=== PATIENT | male | born 1970 | race African-American/Black ===

== ENCOUNTER 2017-04-25 09:37 | Emergency (ER) | payer SELFPAY ==
[2017-04-25] MEDS ORDERED: Ketorolac Tromethamine 30 MG/ML VIAL ONE (12:23)
== END 2017-04-25 12:27 | disposition home or self-care (01) ==
LOC: ERS 09:37
DX: G89.29 Other chronic pain (principal); M25.562 Pain in left knee; M25.561 Pain in right knee; M54.9 Dorsalgia, unspecified; E78.5 Hyperlipidemia, unspecified; I10 Essential (primary) hypertension; E66.9 Obesity, unspecified; F17.210 Nicotine dependence, cigarettes, uncomplicated
CPT/HCPCS: 96372; 99406; J1885

== ENCOUNTER 2017-08-23 20:25 | Emergency (ER) | payer SELFPAY ==
[2017-08-23 21:26] LABS: #Eosinphils 0.1 thou/uL (0.0-0.7); #Lymphocytes 2.2 thou/uL (1.20-3.40); #Monocytes 0.4 thou/uL (0.11-0.59); #Neutrophils 4.4 thou/uL (1.40-6.50); %Basophils 0.4 % (0.0-1.0); %Eosinophils 1.1 % (0.0-10.0); %Lymphocytes 30.3 % (21.0-51.0); %Monocytes 6.2 % (0.0-10.0); %Neutrophils 62.1 % (42.0-75.0); Hemoglobin 15.7 g/dL (14.0-18.0); Mean Corpuscular Hemoglobin 31.2 pg (27.0-31.0); Mean Corpuscular Volume 94.5 fl (80.0-94.0); Mean Platelet Volume 6.9 fL (7.4-10.4); Platelet Count 290 thou/uL (130-400); RBC Distribution Width 11.4 % (11.5-14.5); Red Blood Cell (RBC) Count 5.05 mill/uL (4.70-6.10); White Blood Cell (WBC) Count 7.1 thou/uL (4.8-10.8)
--- NOTE | 2017-08-23 21:42 | RAD ---
FRONTAL VIEW CHEST: 08/23/17 COMPARISON: 05/04/16. INDICATION: Syncope. Chest pain. FINDINGS: There is no evidence of consolidation, effusion or discrete pneumothorax. Elevation of the right luz maria diaphragm. The cardiomediastinal silhouette is prominent, accentuated with portable technique, and gr ossly stable. IMPRESSION: Stable prominence of cardiomediastinal silhouette with mild vascular congestion. Correlate clinically . POS: [facility]
[2017-08-23 21:48] LABS: ALT (SGPT) 22 U/L (8-55); AST (SGOT) 20 U/L (5-34); Albumin 3.9 g/dL (3.5-5.0); Alkaline Phosphatase 117 U/L (40-150); Anion Gap 13 mmol/L (10-20); BUN (Urea Nitrogen) 10 mg/dL (8.9-20.6); Bilirubin, Total 0.6 mg/dL (0.2-1.2); Calc. Creatinine Clearance 0 mL/min (70-130); Calcium 9.7 mg/dL (7.8-10.44); Carbon Dioxide 26 mmol/L (22-29); Chloride 101 mmol/L (98-107); Estimated GFR-MDRD 80; Globulin 3.8 g/dL (2.4-3.5); Glucose 91 mg/dL (70-105); Potassium 3.4 mmol/L (3.5-5.1); Protein, Total 7.7 g/dL (6.0-8.3); Sodium 137 mmol/L (136-145)
[2017-08-23 21:52] LABS: CKMB 1.9 ng/mL (0-6.6); Troponin I Less than 0.010 ng/mL (< 0.028)
[2017-08-23 22:35] LABS: Bilirubin Negative (Negative); Blood, Urine Negative (Negative); Clarity CLEAR (Clear); Glucose, Urine (Dipstick) Negative (Negative); Leukocyte Negative (Negative); Nitrite Negative (Negative); Protein, Urine (Dipstick) Negative (Neg-Trace); Specific Gravity, Urine 1.015 (1.002-1.036); pH, Urine 6.5 (5.0-9.0)
[2017-08-23 22:44] LABS: Amphetamine Detected (NotDetected); Medtox Reader # READER 1; Methamphetamine Detected (NotDetected); Opiate Screen Detected (NotDetected); THC/Cannabinoid Screen Detected (NotDetected)
[2017-08-23 22:45] LABS: Barbiturates Screen Not Detected (NotDetected); Benzodiazepine Screen Not Detected (NotDetected); Cocaine Metabolite Screen Not Detected (NotDetected); Medtox Control Line Valid? VALID (VALID); Methadone Not Detected (NotDetected); Oxycodone Screen Not Detected (NotDetected); Phencyclidine (PCP) Not Detected (NotDetected); Tricyclic Screen Not Detected (NotDetected)
== END 2017-08-23 23:45 | disposition home or self-care (01) ==
LOC: ERS 20:25
DX: E86.0 Dehydration (principal); E78.5 Hyperlipidemia, unspecified; I10 Essential (primary) hypertension; E66.9 Obesity, unspecified; F17.210 Nicotine dependence, cigarettes, uncomplicated
CPT/HCPCS: 36415; 71045; 80053; 80306; 81003; 82553; 84484; 85025; 85379; 93005; 96360; 96361

== ENCOUNTER 2019-11-13 08:11 | Outpatient (CLI) | payer MEDICARE, MEDICAID ==
--- NOTE | 2019-11-13 11:11 | MRI ---
MRI LUMBAR SPINE WITHOUT CONTRAST: HISTORY: Difficulty walking. Numbness in both feet. COMPARISON: 01/22/2018. FINDINGS: The vertebral heights and marrow signal are maintained. There is disk desiccation at L3-4 level. Th ere is continued mild disk bulging with stable mild severe disk extrusion. No significant central ca nal stenosis is seen. There is mild bilateral neural foraminal stenosis at L3-4 and L4-5 levels. Fa cet hypertrophic changes are again noted at L3-4, L4-5, and L5-S1 levels. The conus medullaris ends at L1 level. The psoas muscles are bilaterally symmetric. IMPRESSION: Stable exam. POS: [facility]
== END 2019-11-13 08:12 | disposition home or self-care (01) ==
LOC: TBSIIMAG 08:11
PROVIDERS: ATTEND Family Medicine
DX: R26.2 Difficulty in walking, not elsewhere classified (principal)
CPT/HCPCS: 72148

== ENCOUNTER 2020-07-26 19:30 | Outpatient (CLI) | payer MEDICARE, MEDICAID | END 2020-07-26 19:31 | disposition home or self-care (01) | LOC: SLEEPLAB 19:30 | PROVIDERS: ATTEND Student in an Organized Health Care Education/Training Program | DX: G47.33 Obstructive sleep apnea (adult) (pediatric) (principal); R53.82 Chronic fatigue, unspecified; I10 Essential (primary) hypertension; G47.10 Hypersomnia, unspecified; G47.00 Insomnia, unspecified; R06.83 Snoring; E66.9 Obesity, unspecified; Z68.43 Body mass index [BMI] 50.0-59.9, adult | CPT/HCPCS: 95811 ==

== ENCOUNTER 2021-04-30 10:20 | Inpatient (IN) | payer MEDICARE, MEDICAID ==
[2021-04-30 10:54] LABS: Hemoglobin 13.9 g/dL (14.0-18.0); Mean Corpuscular HGB CONC 31.8 g/dL (32.0-36.0); Mean Corpuscular Hemoglobin 29.7 pg (27.0-31.0); Mean Corpuscular Volume 93.4 fL (78.0-98.0); Mean Platelet Volume 7.6 fL (7.4-10.4); Platelet Count 231 thou/uL (130-400); RBC Distribution Width 12.1 % (11.5-14.5); Red Blood Cell (RBC) Count 4.67 mill/uL (4.70-6.10); White Blood Cell (WBC) Count 18.3 thou/uL (4.8-10.8)
[2021-04-30 10:57] LABS: Bilirubin Negative (Negative); Blood, Urine Negative (Negative); Clarity Clear (Clear); Glucose, Urine (Dipstick) Normal (Negative); Ketone, Urine Negative (Negative); Leukocyte Negative Leu/uL (Negative); Nitrite Negative (Negative); Protein, Urine (Dipstick) Negative (Neg-Trace); Specific Gravity, Urine 1.018 (1.002-1.036); Urobilinogen 6 mg/dL (Less than 2)
[2021-04-30] MEDS ORDERED: cefTRIAXone\\ROCEPHIN 2 GM VIAL ONE (10:59)
[2021-04-30 11:15] LABS: Band 12 % (5-11); Lymphocytes 12 % (21-51); MDiff Complete? YES; Metamyelocyte 1 % (0-0); Monocytes 1 % (0-10); Neutrophil 74 % (42-75); RBC Morphology Normal
[2021-04-30 11:22] LABS: ALT (SGPT) 15 U/L (8-55); AST (SGOT) 14 U/L (5-34); Albumin 3.6 g/dL (3.5-5.0); Alkaline Phosphatase 120 U/L (40-110); Anion Gap 9 mmol/L (10-20); BUN (Urea Nitrogen) 10 mg/dL (8.4-25.7); Bilirubin, Total 0.8 mg/dL (0.2-1.2); Calc. Creatinine Clearance 0 mL/min (70-130); Calcium 9.2 mg/dL (7.8-10.44); Carbon Dioxide 30 mmol/L (22-29); Chloride 96 mmol/L (98-107); Glucose 104 mg/dL (70-105); Protein, Total 7.6 g/dL (6.0-8.3); Prothrombin Time 13.4 sec (12.0-14.7); Sodium 131 mmol/L (136-145)
[2021-04-30 11:32] LABS: SARS-CoV-2 NAA Rapid Test Not Detected (NotDetected)
[2021-04-30] MEDS ORDERED: Azithromycin 500 MG VIAL ONE (11:36)
[2021-04-30] MEDS ORDERED: Carvedilol 6.25 MG TAB PO SCH (14:15)
[2021-04-30] MEDS ORDERED: hydrALAZINE 25 MG TAB PO SCH ×2 (14:15→15:00)
[2021-04-30] MEDS ORDERED: hydrALAZINE 20 MG/ML VIAL SLOW IVP PRN (14:23)
[2021-04-30] MEDS ORDERED: Albuterol Sulfate 1.25 MG/3 ML NEB INH PRN (14:44)
[2021-04-30] MEDS ORDERED: Non-Formulary Item 1 EACH (Hydralazine Hcl [Hydralazine Hcl] 50 MG Tablet) PO SCH (15:00)
[2021-04-30] MEDS: Acetaminophen 325 MG TAB PO PRN (15:21)
[2021-04-30] MEDS ORDERED: Furosemide 40 MG/4 ML VIAL SLOW IVP SCH (16:00)
[2021-04-30 16:52] VITALS: BMI 59.1
[2021-04-30] MEDS ORDERED: Ketorolac Tromethamine 30 MG/ML VIAL IVP SCH (18:00)
[2021-04-30] MEDS ORDERED: Nicotine 14 MG PATCH TOP SCH (20:30)
[2021-04-30] MEDS: Cyclobenzaprine 10 MG TAB PO SCH (20:41)
[2021-04-30] MEDS: Pregabalin 75 MG CAP PO SCH (20:42)
[2021-04-30] MEDS: Carvedilol 6.25 MG TAB PO SCH (20:43)
[2021-04-30] MEDS: Enoxaparin Sodium 100 MG/ML SYRINGE SC SCH (20:48)
[2021-04-30] MEDS: hydrALAZINE 25 MG TAB PO SCH (21:07)
[2021-05-01 06:29] LABS: Hemoglobin 13.5 g/dL (14.0-18.0); Mean Corpuscular HGB CONC 31.9 g/dL (32.0-36.0); Mean Corpuscular Hemoglobin 30.3 pg (27.0-31.0); Mean Corpuscular Volume 95.1 fL (78.0-98.0); Mean Platelet Volume 8.1 fL (7.4-10.4); Platelet Count 176 thou/uL (130-400); RBC Distribution Width 12.3 % (11.5-14.5); Red Blood Cell (RBC) Count 4.44 mill/uL (4.70-6.10); White Blood Cell (WBC) Count 8.1 thou/uL (4.8-10.8)
[2021-05-01] MEDS: Acetaminophen 325 MG TAB PO PRN ×2 (06:39→16:27)
[2021-05-01 06:48] LABS: Band 10 % (5-11); Lymphocytes 4 % (21-51); MDiff Complete? YES; Monocytes 4 % (0-10); Neutrophil 82 % (42-75)
[2021-05-01 07:11] LABS: ALT (SGPT) 31 U/L (8-55); AST (SGOT) 40 U/L (5-34); Albumin 3.1 g/dL (3.5-5.0); Alkaline Phosphatase 109 U/L (40-110); Anion Gap 12 mmol/L (10-20); BUN (Urea Nitrogen) 9 mg/dL (8.4-25.7); Bilirubin, Total 0.6 mg/dL (0.2-1.2); Calc. Creatinine Clearance 267 mL/min (70-130); Carbon Dioxide 25 mmol/L (22-29); Chloride 102 mmol/L (98-107); Globulin 3.9 g/dL (2.4-3.5); Glucose 88 mg/dL (70-105); Potassium 4.2 mmol/L (3.5-5.1); Sodium 135 mmol/L (136-145)
[2021-05-01] MEDS: Tamsulosin HCl 0.4 MG CAP PO SCH (08:36)
[2021-05-01] MEDS: Meloxicam 15 MG TAB PO SCH (08:36)
[2021-05-01] MEDS: Carvedilol 6.25 MG TAB PO SCH ×2 (08:36→20:36)
[2021-05-01] MEDS: Atorvastatin Calcium 40 MG TAB PO SCH (08:36)
[2021-05-01] MEDS: FLUoxetine HCl 20 MG CAP PO SCH (08:37)
[2021-05-01] MEDS: Pregabalin 75 MG CAP PO SCH ×2 (08:37→20:38)
[2021-05-01] MEDS: hydrALAZINE 25 MG TAB PO SCH ×3 (08:37→22:01)
[2021-05-01] MEDS: Furosemide 40 MG/4 ML VIAL SLOW IVP SCH (08:38)
[2021-05-01] MEDS: Enoxaparin Sodium 100 MG/ML SYRINGE SC SCH ×2 (08:38→20:40)
[2021-05-01] MEDS: Fluticasone Propionate Nasal Spray 16 gm Bottle NASAL SCH (08:38)
[2021-05-01] MEDS ORDERED: Azithromycin 200 MG/5 ML Oral Suspension PO SCH (09:00)
[2021-05-01] MEDS ORDERED: Enoxaparin Sodium 40 MG/0.4 ML SYRINGE SC SCH (09:00)
[2021-05-01] MEDS ORDERED: Furosemide 40 MG TAB PO SCH (09:00)
[2021-05-01] MEDS ORDERED: cefTRIAXone\\ROCEPHIN 2 GM in Sodium Chloride 0.9% 100 ML IVPB SCH (11:00)
[2021-05-01] MEDS: Cephalexin 250 MG CAP PO SCH ×3 (14:33→20:46)
[2021-05-01] MEDS: Ibuprofen 200 MG TAB PO PRN (17:12)
[2021-05-01] MEDS: Cyclobenzaprine 10 MG TAB PO SCH (20:35)
[2021-05-02] MEDS: Ibuprofen 200 MG TAB PO PRN (05:53)
[2021-05-02 07:09] LABS: #Eosinphils 0.2 thou/uL (0.0-0.7); #Lymphocytes 1.2 thou/uL (1.20-3.40); #Monocytes 0.5 thou/uL (0.11-0.59); #Neutrophils 2.5 thou/uL (1.40-6.50); %Basophils 0.4 % (0.0-1.0); %Eosinophils 3.7 % (0.0-10.0); %Lymphocytes 28.2 % (21.0-51.0); %Monocytes 10.5 % (0.0-10.0); %Neutrophils 57.3 % (42.0-75.0); Mean Corpuscular HGB CONC 31.7 g/dL (32.0-36.0); Mean Corpuscular Hemoglobin 30.4 pg (27.0-31.0); Mean Corpuscular Volume 95.8 fL (78.0-98.0); Mean Platelet Volume 7.2 fL (7.4-10.4); Platelet Count 207 thou/uL (130-400); RBC Distribution Width 12.1 % (11.5-14.5); White Blood Cell (WBC) Count 4.3 thou/uL (4.8-10.8)
[2021-05-02] MEDS: Furosemide 40 MG/4 ML VIAL SLOW IVP SCH (09:26)
[2021-05-02] MEDS: Tamsulosin HCl 0.4 MG CAP PO SCH (09:26)
[2021-05-02] MEDS: hydrALAZINE 25 MG TAB PO SCH ×2 (09:26→15:34)
[2021-05-02] MEDS: FLUoxetine HCl 20 MG CAP PO SCH (09:26)
[2021-05-02] MEDS: Meloxicam 15 MG TAB PO SCH (09:26)
[2021-05-02] MEDS: Cephalexin 250 MG CAP PO SCH ×2 (09:26→14:15)
[2021-05-02] MEDS: Carvedilol 6.25 MG TAB PO SCH (09:26)
[2021-05-02] MEDS: Enoxaparin Sodium 100 MG/ML SYRINGE SC SCH (09:27)
[2021-05-02] MEDS: Atorvastatin Calcium 40 MG TAB PO SCH (09:27)
[2021-05-02] MEDS: Fluticasone Propionate Nasal Spray 16 gm Bottle NASAL SCH (09:27)
[2021-05-02] MEDS: Pregabalin 75 MG CAP PO SCH (09:27)
[2021-05-02 09:34] VITALS: BP 139/87
[2021-05-02 09:42] VITALS: TEMP 97.9
[2021-05-03] MEDS ORDERED: Prevnar 13-Val Conj/PF 0.5 ML SYRINGE IM ONE (17:45)
== END 2021-05-02 15:59 | disposition home or self-care (01) | DRG 603 ==
LOC: ERS 10:20 → T4-A 12:46
PROVIDERS: ADMIT Student in an Organized Health Care Education/Training Program; ATTEND Student in an Organized Health Care Education/Training Program
DX: L03.314 Cellulitis of groin (principal); E87.1 Hypo-osmolality and hyponatremia; R65.10 Systemic inflammatory response syndrome (SIRS) of non-infectious origin without acute organ dysfunction; Z68.43 Body mass index [BMI] 50.0-59.9, adult; J06.9 Acute upper respiratory infection, unspecified; Z20.822 Contact with and (suspected) exposure to COVID-19; I10 Essential (primary) hypertension; G47.33 Obstructive sleep apnea (adult) (pediatric); M54.50 Low back pain, unspecified; G89.29 Other chronic pain; E66.01 Morbid (severe) obesity due to excess calories; N40.0 Benign prostatic hyperplasia without lower urinary tract symptoms; F17.210 Nicotine dependence, cigarettes, uncomplicated; F32.A Depression, unspecified; J44.9 Chronic obstructive pulmonary disease, unspecified; M10.9 Gout, unspecified; J32.9 Chronic sinusitis, unspecified; Z79.899 Other long term (current) drug therapy; Z79.51 Long term (current) use of inhaled steroids
CPT/HCPCS: 0240U; 36415; 36416; 71045; 80053; 81003; 83605; 83880; 84145; 84484; 85025; 85520; 85610; 85730; 87040; 87086; 87633; 93005; 94640; 96365; 96367; J0456; J0696; J1650; J1885; J1940; J3490; J7620

== ENCOUNTER 2021-06-25 14:04 | Outpatient (CLI) | payer MEDICARE, MEDICAID | END 2021-06-25 14:05 | disposition home or self-care (01) | LOC: LABBT 14:04 | PROVIDERS: ATTEND Urology | DX: Z01.818 Encounter for other preprocedural examination (principal); N40.1 Benign prostatic hyperplasia with lower urinary tract symptoms; R35.0 Frequency of micturition; M51.36 Other intervertebral disc degeneration, lumbar region; F17.200 Nicotine dependence, unspecified, uncomplicated; M17.0 Bilateral primary osteoarthritis of knee; M53.2X2 Spinal instabilities, cervical region; R35.1 Nocturia; Z12.5 Encounter for screening for malignant neoplasm of prostate; Z80.42 Family history of malignant neoplasm of prostate; E66.01 Morbid (severe) obesity due to excess calories; N39.41 Urge incontinence; Z86.19 Personal history of other infectious and parasitic diseases; R60.0 Localized edema; Z20.822 Contact with and (suspected) exposure to COVID-19 | CPT/HCPCS: 71046; 80048; 81001; 85027; 85610; 85730; 86850; 86900; 86901; 87086; U0003; U0005 ==

== ENCOUNTER 2021-06-30 09:18 | Observation (INO) | payer MEDICARE, MEDICAID ==
[2021-06-25 11:14] VITALS: BMI 61.0
[2021-06-25 15:29] LABS: Hemoglobin 12.6 g/dL (13.5-17.5); Mean Corpuscular HGB CONC 31.3 g/dL (32.0-36.0); Mean Corpuscular Hemoglobin 29.4 pg (27.0-33.0); Mean Corpuscular Volume 93.7 fl (81.2-95.1); Mean Platelet Volume 9.9 fl (7.4-10.4); Platelet Count 280 10x3/uL (150-450); RBC Distribution Width 13.3 % (11.5-14.5); Red Blood Cell (RBC) Count 4.29 10x6/uL (4.32-5.72); White Blood Cell (WBC) Count 6.9 10x3/uL (3.5-10.5)
[2021-06-25 15:32] LABS: Bilirubin Neg (Negative); Blood, Urine Negative (Negative); Clarity Clear (Clear); Glucose, Urine (Dipstick) Normal (Negative); Ketone, Urine Negative (Negative); Leukocyte Negative (Negative); Nitrite Negative (Negative); Protein, Urine (Dipstick) Negative (Neg-Trace); Urobilinogen Normal mg/dL (Less than 2); pH, Urine 6.5 (5.0-9.0)
[2021-06-25 15:36] LABS: Urine Culture Reflex No No
[2021-06-25 15:50] LABS: Anion Gap 13 mmol/L (10-20); BUN (Urea Nitrogen) 13 mg/dL (8.4-25.7); Calc. Creatinine Clearance 0 mL/min (70-130); Calcium 8.9 mg/dL (7.8-10.44); Carbon Dioxide 28 mmol/L (22-29); Chloride 104 mmol/L (98-107); Glucose 112 mg/dL (70-105); Potassium 3.9 mmol/L (3.5-5.1); Sodium 141 mmol/L (136-145)
[2021-06-25 15:56] LABS: INR-International Normal Ratio 0.9; PTT 25.4 sec (22.0-33.0); Prothrombin Time 10.1 sec (9.5-12.1)
[2021-06-25 16:04] LABS: Bacteria/HPF Rare-Few HPF (None Seen); RBC/HPF 0-3 HPF (0-3); Squamous Epithelial 0-3 HPF (0-3); WBC/HPF 0-3 HPF (0-3)
[2021-06-25 23:19] LABS: SARS-CoV-2 PCR by NAA Not Detected (NotDetected)
[2021-06-30] MEDS ORDERED: Levofloxacin 500 mg/D5W 100 ml Premix Bag ONE (10:29)
[2021-06-30] MEDS ORDERED: Ondansetron PF 4 MG/2 ML Vial ONE (13:59)
[2021-06-30] MEDS ORDERED: SUGAMMADEX SODIUM 200 MG/2 ML VIAL ONE (13:59)
[2021-06-30] MEDS ORDERED: Succinylcholine 200 MG/10 ml SYRINGE FS ONE (13:59)
[2021-06-30] MEDS ORDERED: Rocuronium Bromide 10 MG/ML (10ML VIAL) ONE ×2 (13:59)
[2021-06-30] MEDS ORDERED: Fentanyl 250 MCG/5 ML VIAL ONE (13:59)
[2021-06-30] MEDS ORDERED: Lidocaine 1% PF 5 ML VIAL ONE (13:59)
[2021-06-30] MEDS ORDERED: PROPOFOL 200 MG/20 ML VIAL ONE (13:59)
[2021-06-30] MEDS ORDERED: Dexamethasone 20 MG/5 ML VIAL ONE (13:59)
[2021-06-30] MEDS ORDERED: Sodium Chloride 0.9% 1,000 ML IV SCH (15:30)
[2021-06-30] MEDS ORDERED: Zolpidem Tartrate 5 MG TAB PO PRN (15:30)
[2021-06-30] MEDS ORDERED: Phenazopyridine HCl 97.5 MG TABLET PO PRN (15:30)
[2021-06-30] MEDS ORDERED: Oxybutynin 5 MG TAB PO PRN (15:30)
[2021-06-30] MEDS ORDERED: HYDROcodone/Acetaminophen 5/325 mg Tablet PO PRN ×2 (15:30)
[2021-06-30] MEDS ORDERED: Ondansetron PF 4 MG/2 ML Vial IVP PRN (15:30)
[2021-06-30] MEDS ORDERED: Mag-Al 1200 mg/1200 mg/30 ML UDCUP PO PRN (15:30)
[2021-06-30] MEDS ORDERED: Cyclobenzaprine 10 MG TAB PO PRN ×2 (15:33→17:45)
[2021-06-30] MEDS ORDERED: Promethazine HCl 25 MG/ML VIAL IVPB PRN (15:44)
[2021-06-30] MEDS ORDERED: Promethazine HCl 25 MG/ML VIAL IM PRN (15:44)
[2021-06-30] MEDS ORDERED: Ondansetron HCl/PF 4 MG/2 ML Vial IVP PRN (15:44)
[2021-06-30] MEDS ORDERED: Albuterol Sulfate 1.25 MG/3 ML NEB NEB PRN (15:50)
[2021-06-30] MEDS ORDERED: Morphine 4 MG/ML VIAL SLOW IVP PRN (15:52)
[2021-06-30] MEDS ORDERED: PACU-Morphine 4MG/ML VIAL SLOW IVP PRN (16:00)
[2021-06-30 16:16] LABS: #Basophils 0.1 thou/uL (0.0-0.2); #Eosinphils 0.2 thou/uL (0.0-0.7); #Monocytes 0.6 thou/uL (0.11-0.59); #Neutrophils 3.3 thou/uL (1.40-6.50); %Basophils 0.8 % (0.0-1.0); %Eosinophils 2.7 % (0.0-10.0); %Lymphocytes 32.7 % (21.0-51.0); %Monocytes 10.1 % (0.0-10.0); %Neutrophils 53.6 % (42.0-75.0); Hemoglobin 13.4 g/dL (14.0-18.0); Mean Corpuscular HGB CONC 31.2 g/dL (32.0-36.0); Mean Corpuscular Hemoglobin 29.5 pg (27.0-31.0); Mean Corpuscular Volume 94.7 fL (78.0-98.0); Mean Platelet Volume 7.4 fL (7.4-10.4); Platelet Count 242 thou/uL (130-400); RBC Distribution Width 12.6 % (11.5-14.5); Red Blood Cell (RBC) Count 4.55 mill/uL (4.70-6.10); White Blood Cell (WBC) Count 6.1 thou/uL (4.8-10.8)
[2021-06-30 16:18] LABS: Anion Gap 11 mmol/L (10-20); BUN (Urea Nitrogen) 9 mg/dL (8.4-25.7); Calc. Creatinine Clearance 290 mL/min (70-130); Calcium 9.1 mg/dL (7.8-10.44); Carbon Dioxide 29 mmol/L (22-29); Chloride 104 mmol/L (98-107); Glucose 96 mg/dL (70-105); Potassium 4.1 mmol/L (3.5-5.1); Sodium 140 mmol/L (136-145)
[2021-06-30] MEDS: Carvedilol 6.25 MG TAB PO SCH (19:09)
[2021-06-30] MEDS: hydrALAZINE 25 MG TAB PO SCH (19:09)
[2021-06-30] MEDS ORDERED: hydrALAZINE 20 MG/ML VIAL SLOW IVP PRN (19:36)
[2021-06-30] MEDS ORDERED: Atorvastatin Calcium 40 MG TAB PO SCH (21:00)
[2021-06-30] MEDS: Pregabalin 75 MG CAP PO SCH (21:02)
[2021-06-30] MEDS: Famotidine/PF 20 mg/2ml Vial SLOW IVP SCH (21:03)
[2021-06-30] MEDS: Docusate 100 MG CAP PO SCH (21:03)
[2021-07-01 05:39] LABS: #Lymphocytes 1.1 thou/uL (1.20-3.40); #Monocytes 0.3 thou/uL (0.11-0.59); #Neutrophils 7.2 thou/uL (1.40-6.50); %Basophils 0.2 % (0.0-1.0); %Lymphocytes 12.5 % (21.0-51.0); %Monocytes 3.2 % (0.0-10.0); %Neutrophils 84.1 % (42.0-75.0); Mean Corpuscular HGB CONC 30.6 g/dL (32.0-36.0); Mean Corpuscular Hemoglobin 29.7 pg (27.0-31.0); Mean Platelet Volume 7.1 fL (7.4-10.4); Platelet Count 292 thou/uL (130-400); RBC Distribution Width 12.7 % (11.5-14.5); Red Blood Cell (RBC) Count 4.71 mill/uL (4.70-6.10); White Blood Cell (WBC) Count 8.5 thou/uL (4.8-10.8)
[2021-07-01 05:56] LABS: Anion Gap 10 mmol/L (10-20); BUN (Urea Nitrogen) 9 mg/dL (8.4-25.7); Calc. Creatinine Clearance 260 mL/min (70-130); Calcium 9.1 mg/dL (7.8-10.44); Carbon Dioxide 30 mmol/L (22-29); Chloride 104 mmol/L (98-107); Glucose 126 mg/dL (70-105); Potassium 4.5 mmol/L (3.5-5.1); Sodium 139 mmol/L (136-145)
[2021-07-01] MEDS ORDERED: cefTRIAXone\\ROCEPHIN 1 GM in Sodium Chloride 0.9% 100 ML IVPB SCH (07:00)
[2021-07-01] MEDS ORDERED: Potassium Chloride 20 MEQ TAB PO SCH (08:00)
[2021-07-01 08:31] VITALS: BP 140/84; TEMP 98.4
[2021-07-01] MEDS: Famotidine/PF 20 mg/2ml Vial SLOW IVP SCH (08:39)
[2021-07-01] MEDS: hydrALAZINE 25 MG TAB PO SCH ×2 (08:40→08:45)
[2021-07-01] MEDS: Pregabalin 75 MG CAP PO SCH (08:41)
[2021-07-01] MEDS: Carvedilol 6.25 MG TAB PO SCH (08:42)
[2021-07-01] MEDS: Docusate 100 MG CAP PO SCH (08:46)
[2021-07-01] MEDS ORDERED: Finasteride 5 MG TAB PO SCH (09:00)
[2021-07-01] MEDS ORDERED: Furosemide 40 MG TAB PO SCH (09:00)
[2021-07-01] MEDS ORDERED: Fluticasone Propionate Nasal Spray 16 gm Bottle NASAL SCH (09:00)
[2021-07-01] MEDS ORDERED: Tamsulosin HCl 0.4 MG CAP PO SCH ×2 (09:00)
[2021-07-01] MEDS ORDERED: FLUoxetine HCl 20 MG CAP PO SCH (09:00)
== END 2021-07-01 12:45 | disposition home or self-care (01) ==
LOC: SDC 09:18 → SJJU 15:34
PROVIDERS: ADMIT Urology; ATTEND Urology
PROC: 0VT08ZZ Resection of Prostate, Via Natural or Artificial Opening Endoscopic (ICD-10-PCS; principal; 2021-06-30)
DX: N40.1 Benign prostatic hyperplasia with lower urinary tract symptoms (principal); R35.0 Frequency of micturition; E78.5 Hyperlipidemia, unspecified; G47.33 Obstructive sleep apnea (adult) (pediatric); R39.12 Poor urinary stream; R35.1 Nocturia; N13.8 Other obstructive and reflux uropathy; M17.0 Bilateral primary osteoarthritis of knee; I11.0 Hypertensive heart disease with heart failure; I50.30 Unspecified diastolic (congestive) heart failure; F17.210 Nicotine dependence, cigarettes, uncomplicated; M51.16 Intervertebral disc disorders with radiculopathy, lumbar region; M10.9 Gout, unspecified; E66.01 Morbid (severe) obesity due to excess calories; Z68.44 Body mass index [BMI] 60.0-69.9, adult; Z80.42 Family history of malignant neoplasm of prostate; Z79.1 Long term (current) use of non-steroidal anti-inflammatories (NSAID); Z79.899 Other long term (current) drug therapy; Z20.822 Contact with and (suspected) exposure to COVID-19
CPT/HCPCS: 52601; 80048 ×2; 81001; 85025 ×2; 85027; 85610; 85730; 86850; 86900; 86901; 87086; U0003; U0005; 36415; 51798; 88305; 96374; 96375; 96376; G0378; J0360; J0696; J1100; J1956; J2405; J2704; J3010; J3490; J7050; J7620; S0028

== ENCOUNTER 2021-11-09 18:08 | Emergency (ER) | payer MEDICARE, MEDICAID ==
[2021-11-09] MEDS ORDERED: Morphine 10 MG/ML VIAL ONE (20:26)
== END 2021-11-09 22:33 | disposition home or self-care (01) ==
LOC: ERS 18:08
DX: M25.551 Pain in right hip (principal); E78.5 Hyperlipidemia, unspecified; I10 Essential (primary) hypertension; F17.210 Nicotine dependence, cigarettes, uncomplicated; Z79.899 Other long term (current) drug therapy; W19.XXXA Unspecified fall, initial encounter
CPT/HCPCS: 72170; 96372; J2270

== ENCOUNTER 2021-12-29 02:48 | Emergency (ER) | payer OTHER, MEDICAID ==
[2021-12-29] MEDS ORDERED: Ketorolac Tromethamine 30 MG/ML VIAL ONE (03:12)
== END 2021-12-29 04:00 | disposition home or self-care (01) ==
LOC: ERS 02:48
DX: S93.401A Sprain of unspecified ligament of right ankle, initial encounter (principal); S70.01XA Contusion of right hip, initial encounter; I11.0 Hypertensive heart disease with heart failure; I50.9 Heart failure, unspecified; E78.5 Hyperlipidemia, unspecified; E66.9 Obesity, unspecified; N40.0 Benign prostatic hyperplasia without lower urinary tract symptoms; Z87.891 Personal history of nicotine dependence; Z79.899 Other long term (current) drug therapy; Z79.51 Long term (current) use of inhaled steroids; W18.30XA Fall on same level, unspecified, initial encounter; Y92.009 Unspecified place in unspecified non-institutional (private) residence as the place of occurrence of the external cause
CPT/HCPCS: 96372; J1885

== ENCOUNTER 2022-11-18 13:20 | Outpatient (CLI) | payer OTHER, MEDICAID | END 2022-11-18 13:21 | disposition home or self-care (01) | LOC: BICCT 13:20 | PROVIDERS: ATTEND Student in an Organized Health Care Education/Training Program | DX: Z12.2 Encounter for screening for malignant neoplasm of respiratory organs (principal); F17.210 Nicotine dependence, cigarettes, uncomplicated | CPT/HCPCS: 71271 ==

== ENCOUNTER 2023-03-30 12:54 | Outpatient (CLI) | payer OTHER | END 2023-03-30 12:55 | disposition home or self-care (01) | LOC: ULT 12:54 | PROVIDERS: ATTEND Urology | DX: N40.1 Benign prostatic hyperplasia with lower urinary tract symptoms (principal); N39.41 Urge incontinence; R82.71 Bacteriuria; R81 Glycosuria; N39.43 Post-void dribbling | CPT/HCPCS: 76770 ==